=== PATIENT | male | born 1945 | race Caucasian/White ===

== ENCOUNTER 2018-01-29 08:18 | Day surgery (SDC) | payer MEDICARE, BC ==
[~2018-01-29] VITALS: Ht 177.8 cm; Wt 79.4 kg
--- NOTE | ~2018-01-29 | HP ---
PATIENT: ARSENIO CHOI MEDICAL RECORD: [id number] ACCOUNT: [id number] LOCATION:[facility] : 47 ADMISSION DATE: 01/29/18 PCP: RASHEEDA BRYANT MD HISTORY AND PHYSICAL EXAMINATION HISTORY: Mr. Choi is a 72-year-old male who has had nasal obstruction refractory to medical management. He has been admitted for septoplasty and turbinate reduction. PAST MEDICAL HISTORY: Includes hypertension and prostate cancer. PAST SURGICAL HISTORY: Includes prostate surgery. CURRENT MEDICATIONS: Lipitor, amlodipine, and hydralazine. ALLERGIES: No known drug allergies. PHYSICAL EXAMINATION: GENERAL: Healthy appearing. Developmentally normal. FACE: Normal and symmetric. No lesions. EYES: Sclerae and conjunctivae are normal. EARS: Normal. NOSE: Narrow nasal cavity. Some valve collapse. Large inferior turbinates and septal deviation. ORAL CAVITY AND OROPHARYNX: Tongue protrudes in midline. Pharynx is normal. No trismus. NECK: No masses. No adenopathy. CHEST: Clear. CARDIOVASCULAR: Regular rate and rhythm. No murmur. EXTREMITIES: Normal. IMPRESSION: Nasal obstruction, septal deviation, and turbinate hypertrophy. PLAN: Septoplasty, bilateral inferior turbinate reduction, address the nasal valve, and we can draw blood for RAST at that time. TRANSINT:[id number] Voice Confirmation ID: [id number] DOCUMENT ID: [id number] JAMES MEJIA MD at 1817 CC: [id number] DICTATION DATE: 01/24/18 1340 [place] SELECTOR: 01/24/18 1442 [facility] 01/29/18 [id number] [place] [address]
--- NOTE | ~2018-01-29 | OP ---
PATIENT NAME: ARSENIO SANCHEZ MEDICAL RECORD: [id number] :47 LOCATION:[facility] ADMISSION DATE: SURGEON: JAMES MEJIA MD DATE OF OPERATION: 01/29/2018 PREOPERATIVE DIAGNOSES: Nasal obstruction, septal deviation, and turbinate hypertrophy. POSTOPERATIVE DIAGNOSES: Nasal obstruction, septal deviation, and turbinate hypertrophy. PROCEDURES: Septoplasty and bilateral inferior turbinate reduction. SURGEON: James Mejia MD ANESTHESIA: General orotracheal. BLOOD LOSS: 2 cc. NASAL PACKING: Pickard splints bilaterally. COMPLICATIONS: None. DISPOSITION: Recovery, stable. PROCEDURE NOTE: He was brought to the operating room, placed in the supine position, and sedated and intubated by anesthesia. Eyes were taped. Head drape was applied. His nose was examined using headlight and nasal speculum. Septum, floor of the nose, and inferior turbinates were injected with a total of 1.5 cc of 1% lidocaine with 1:100,000 epinephrine. He had been decongested with Afrin preoperatively. Two Afrin pledgets were placed in each side of the nose. He was positioned, prepped and draped in usual sterile fashion. All the pledgets were removed. A left-sided [place] incision was made. Ipsilateral mucoperichondrial flap was elevated. Redundant portion of the septum rolled out into the floor of the nose was isolated and dissected out with a caudal. Bony protrusion of the maxillary spine was taken off with a chisel. The bony cartilaginous junction was disarticulated with caudal and posterior contralateral mucoperichondrial flap was elevated. Scissors were used to make a cut above and below bony spur that was removed. Relaxing incisions were made in the septal cartilage. This allowed the septum to fall back to the midline. The flaps were replaced and the Yang incision was closed with interrupted 4-0 chromic. Both inferior turbinates were medialized with a freer. [place] was used to take down the inferior redundant portion. Suction cautery was used to stop any bleeding and both outfractured with a Tyler elevator. Nose was carefully examined. Nasopharynx was suctioned, cleaned, and dried. He had good airway. [place]-shaped incisions were made to create some advancement flaps and lengthen the lateral nasal valve area to relax and open that up somewhat. Pickard splints with mupirocin ointment were placed in both sides of the nose and sutured to the anterior membranous septum with 3-0 Prolene on a Eric needle. He was awakened, extubated, and transported to recovery in good condition. No complications. TRANSINT:[id number] Voice Confirmation ID: [id number] DOCUMENT ID: [id number] OPERATIVE REPORT [id number] ARSENIO SANCHEZ, JAMES KU at 1817 CC: [id number] DICTATION DATE: 01/29/18 1305 ROLL OVER LOADER: 01/29/18 1424 [facility] 01/29/18 [facility] [address] [place] [address]
[2018-01-29 08:49] LABS: BASOPHILS 0.5 % (0-2); EOSINOPHILS 4.6 % (0-7); HEMATOCRIT 44.8 % (42.0-54.0); HEMOGLOBIN 15.7 g/dL (13.5-17.5); IMMATURE GRANULOCYTES 0.2 % (0-5); LYMPHOCYTES 26.7 % (15-50); MCV 88.5 fL (80.0-100.0); MEAN PLATELET VOLUME 10.4 fL (7.4-10.4); MONOCYTES 10.1 % (2-11); NEUTROPHILS 57.9 % (40-80); PLATELET COUNT 285 10x3/uL (130-400); RBC 5.06 10x6/uL (4.20-6.10); RDW 13.6 % (11.5-14.5); WBC 5.9 10x3/uL (4.8-10.8)
[2018-01-29 09:09] LABS: APTT 31.7 SECONDS (22.8-39.4); INR 1.02 (0.85-1.17); PROTIME 12.9 SECONDS (11.6-15.0)
[2018-01-29] MEDS ORDERED: NORVASC10 MG PO (10:11)
[2018-01-29] MEDS ORDERED: HYDRALAZINE HCL25 MG PO ×2 (10:12)
[2018-01-29] MEDS ORDERED: LIPITOR10 MG PO (10:13)
[2018-01-29 10:26] VITALS: BP 132/75; Ht 177.8 cm; Wt 79.4 kg
== END 2018-01-29 14:46 | disposition home or self-care (01) ==
LOC: D.OPS 08:18 → D.PAN 10:00 → D.OPS 13:15
PROVIDERS: Anesthesiology
DX: J34.2 Deviated nasal septum (principal); J34.3 Hypertrophy of nasal turbinates; I10 Essential (primary) hypertension